=== PATIENT | male | born 1940 | race Caucasian/White ===

== ENCOUNTER 2017-06-12 09:00 | Outpatient (RCR) | payer MEDICARE, SELFPAY | END 2017-06-26 | LOC: PT 09:00 | PROVIDERS: PCP Family Medicine; Visit Provider Family Medicine | DX: R26.89 Other abnormalities of gait and mobility (principal); R29.6 Repeated falls | CPT/HCPCS: G8978; G8979; G8980; 97110; 97112; 97163 ==

== ENCOUNTER → 2017-07-02 09:21 | Outpatient (CLI) | payer MEDICARE, SELFPAY ==
--- NOTE | 2017-07-02 09:29 | XR_ITS ---
XR wrist RT min 3V HISTORY: Follow-up fracture ITS.REASON: follow up fracture ORDERING PHYSICIAN: The PATIENT AGE: 77 years COMPARISON: 06/04/2017 FINDINGS: The cast has been removed. There is good alignment of the healing distal radial fracture with intra-articular extension with no significant displacement of the fracture fragments. Fracture lines are somewhat less apparent. IMPRESSION: Interval cast removal with good alignment of healing distal radial fracture.
== END ==
PROVIDERS: PCP Family Medicine; Visit Provider Orthopaedic Surgery
DX: S52.514D Nondisplaced fracture of right radial styloid process, subsequent encounter for closed fracture with routine healing (principal)
CPT/HCPCS: 73110

== ENCOUNTER 2017-07-02 10:29 | Outpatient (RCR) | payer MEDICARE, SELFPAY | END 2017-07-02 23:59 | LOC: PT 10:29 | PROVIDERS: Family Provider Family Medicine; PCP Family Medicine; Visit Provider Orthopaedic Surgery | DX: S52.514D Nondisplaced fracture of right radial styloid process, subsequent encounter for closed fracture with routine healing (principal) | CPT/HCPCS: 97760 ==

== ENCOUNTER → 2017-08-12 13:53 | Outpatient (POV) | payer MEDICARE, SELFPAY | PROVIDERS: Family Provider Family Medicine; PCP Family Medicine | DX: Z00.00 Encounter for general adult medical examination without abnormal findings (principal) ==

== ENCOUNTER → 2017-08-13 09:49 | Outpatient (CLI) | payer MEDICARE, SELFPAY ==
--- NOTE | 2017-08-13 09:53 | XR_ITS ---
XR wrist RT min 3V HISTORY: ITS.REASON: follow up right wrist fracture. ORDERING PHYSICIAN: John Coronel MD PATIENT AGE: 77 years COMPARISON: 07/02/2017 FINDINGS: Longitudinal fracture along the lateral aspect of the distal radius is once again noted. Fracture line is less prominent consistent with healing with some developing callus formation. 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 IMPRESSION: Healing nondisplaced distal radial fracture
== END ==
PROVIDERS: PCP Family Medicine; Visit Provider Orthopaedic Surgery
DX: S52.501A Unspecified fracture of the lower end of right radius, initial encounter for closed fracture (principal)
CPT/HCPCS: 73110

== ENCOUNTER 2017-10-08 08:00 | Outpatient (RCR) | payer MEDICARE, SELFPAY | END 2017-10-08 08:01 | disposition home or self-care (01) | LOC: PT 08:00 | PROVIDERS: Family Provider Family Medicine; PCP Family Medicine; Visit Provider Psychiatry & Neurology Neurology | DX: R26.9 Unspecified abnormalities of gait and mobility (principal) | CPT/HCPCS: 97110; 97112; 97164 ==

== ENCOUNTER → 2017-12-16 13:27 | Outpatient (POV) | payer MEDICARE, SELFPAY | PROVIDERS: Family Provider Family Medicine; PCP Family Medicine | DX: Z00.00 Encounter for general adult medical examination without abnormal findings (principal) ==

== ENCOUNTER → 2017-12-25 10:39 | Outpatient (CLI) | payer MEDICARE, SELFPAY ==
[2017-12-25 10:44] LABS: Microscopic, Urine URINE MICROSCOPIC (MICROSCOPIC)
[2017-12-25 11:06] LABS: Basophils % 0.5 % (0.1-2.0); Eosinophils # 0.2 K/mm3 (0.0-0.4); Eosinophils % 2.2 % (0.1-12.0); Hematocrit 37.8 % (42.0-52.0); Hemoglobin 11.5 g/dL (14.1-18.0); Lymphocytes # 1.4 K/mm3 (0.7-4.5); Lymphocytes % 17.1 K/mm3 (10-50); Mean Corpuscular HGB Conc 30.5 g/dL (31.8-35.4); Mean Corpuscular Hemoglobin 27.7 pg (27.0-31.2); Mean Platelet Volume 7.1 fl (7.4-10.4); Monocytes # 0.4 K/mm3 (0.1-1.0); Neutrophils # 6.2 K/mm3 (1.8-7.8); Neutrophils % 75.1 % (37.0-80.0); Platelet Count 381 K/mm3 (142-424); Red Blood Count 4.15 M/mm3 (4.60-6.20); Red Cell Distribution Width 12.8 % (11.5-17.5); White Blood Count 8.3 K/mm3 (4.8-10.8)
[2017-12-25 11:28] LABS: Appearance,Urine CLEAR (Clear); Bilirubin,Urine Negative (Negative); Blood, Urine Negative (Negative); Color,Urine YELLOW (Yellow); Glucose,Urine (UA) Negative (Negative); Ketones,Urine Negative (Negative); Leukocyte Esterase,Urine Negative (Negative); Nitrate,Urine Negative (Negative); PH,Urine 6.5 (5.0-8.5); Protein,Urine 2+ (Negative); Specific Gravity, Urine 1.025 (1.005-1.030)
[2017-12-25 11:40] LABS: WBC,Urine Occasional #/hpf (0-3)
[2017-12-25 11:41] LABS: Bacteria,Urine 1+ /lpf; Squamous Epithelial Cell,Urine Occasional #/hpf (0-5)
[2017-12-25 11:53] LABS: Creatinine,Urine Random 193 mg/dL (20-320); Total Protein,Urine Random 162.1 mg/dL (0.0-11.9)
[2017-12-25 12:23] LABS: Albumin Level 3.7 gm/dL (3.4-5.0); Blood Urea Nitrogen 28 mg/dL (7-18); Calcium 9.3 mg/dL (8.5-10.1); Chloride 106 mmol/L (98-107); Creatinine,Serum 2.43 mg/dL (0.70-1.30); Estimated Glomerular Filt Rate 26 ml/min (>60); GFR (African American) 32 ML/MIN (>60); Glucose 221 mg/dL (74-106); Phosphorous 3.8 mg/dL (2.4-4.9); Sodium 143 mmol/L (136-145)
[2017-12-25 12:28] LABS: Carbon Dioxide 29 mmol/L (21.0-32.0)
[2017-12-26 18:09] LABS: Vitamin D 25 Hydroxy 33.3 ng/mL (30.0-100.0)
[2017-12-26 18:10] LABS: Parathyroid Hormone Intact 47 pg/mL (15-65)
[2017-12-27 18:29] LABS: Calcium, Ionized 5.6 mg/dL (4.5-5.6)
== END ==
PROVIDERS: Visit Provider Internal Medicine Nephrology
DX: N18.4 Chronic kidney disease, stage 4 (severe) (principal)
CPT/HCPCS: 36415; 80069; 81001; 82330; 82570; 82652; 83970; 84155; 85025

== ENCOUNTER → 2017-12-28 15:01 | Outpatient (POV) | payer MEDICARE, SELFPAY | PROVIDERS: Family Provider Family Medicine; PCP Family Medicine; Visit Provider Internal Medicine Nephrology | DX: Z00.00 Encounter for general adult medical examination without abnormal findings (principal) ==

== ENCOUNTER → 2018-01-28 08:29 | Outpatient (POV) | payer MEDICARE, SELFPAY | PROVIDERS: Family Provider Family Medicine; PCP Family Medicine; Visit Provider Dermatology | DX: Z00.00 Encounter for general adult medical examination without abnormal findings (principal) ==

== ENCOUNTER 2018-02-12 01:48 | Observation (INO) ==
[2018-02-12 02:04] LABS: Basophils % 0.4 % (0.1-2.0); Eosinophils # 0.2 K/mm3 (0.0-0.4); Eosinophils % 3.8 % (0.1-12.0); Hematocrit 34.8 % (42.0-52.0); Hemoglobin 11.3 g/dL (14.1-18.0); Lymphocytes # 1.4 K/mm3 (0.7-4.5); Lymphocytes % 23.1 K/mm3 (10-50); Mean Corpuscular HGB Conc 32.4 g/dL (31.8-35.4); Mean Corpuscular Volume 89.4 fl (80-94); Mean Platelet Volume 7.5 fl (7.4-10.4); Monocytes # 0.4 K/mm3 (0.1-1.0); Monocytes % 5.9 % (1.7-9.3); Neutrophils # 4.1 K/mm3 (1.8-7.8); Neutrophils % 66.8 % (37.0-80.0); Platelet Count 240 K/mm3 (142-424); Red Blood Count 3.89 M/mm3 (4.60-6.20); Red Cell Distribution Width 13.8 % (11.5-17.5); White Blood Count 6.2 K/mm3 (4.8-10.8)
[2018-02-12 02:15] LABS: Albumin/Globulin Ratio 1.1 (1.1-1.8); Bilirubin,Total 0.5 mg/dL (0.2-1.0); Calcium 9.2 mg/dL (8.5-10.1); Globulin 3.5 gm/dl (1.3-3.2); Total Protein,Serum 7.5 gm/dL (6.4-8.2)
[2018-02-12 02:28] LABS: Amylase 64 U/L (25-125); Creatine Kinase 169 U/L (39-308); Lipase 311 u/L (73-393)
--- NOTE | 2018-02-12 03:13 | Emergency Department Note ---
ED Disposition Clinical Impression: Small bowel obstruction, Renal insufficiency Disposition: Admitted as Observation Condition on Discharge: Good Instructions: DI for Acute Abdomen - Critical Care Critical Care Time: No Attestation: On 02/12/18, the high probability of a clinically significant, sudden or life threatening deterioration of the following system(s) required my full and direct attention, intervention and personal management. The time I documented below is in addition to time spent performing reported procedures but includes the following listed in this critical care notation. Medical Decision Making - Medical Records Medical records reviewed: Yes: I reviewed the patient's medical records. - Félix Inquiry Pt receiving controlled substance: No Vital Signs: 02/12/18 01:48 Temperature 97.4 F L Temperature Source Oral Pulse Rate [Right Radial] 61 Respiratory Rate 14 Blood Pressure [Right Arm] 169/85 Blood Pressure Mean [Right Arm] 113 02 Sat by Pulse Oximetry 96 - Lab Data Lab results reviewed: Yes: I reviewed the patient's lab results. Lab Results 02/12/18 02:00: WBC 6.2, RBC 3.89 L, Hgb 11.3 L, Hct 34.8 L, MCV 89.4, MCH 29.0 , MCHC 32.4, RDW 13.8, Plt Count 240, MPV 7.5, Neut % (Auto) 66.8, Lymph % (Auto ) 23.1, Piatt % (Auto) 5.9, Eos % (Auto) 3.8, Baso % (Auto) 0.4, Neut # (Auto) 4.1, Lymph # (Auto) 1.4, Piatt # (Auto) 0.4, Eos # (Auto) 0.2, Baso # (Auto) 0.0 02/12/18 02:00: Total Creatine Kinase 169, CK-MB (CK-2) 1.8, CK-MB (CK-2) Rel Index 1.1, Troponin I < 0.02, Amylase 64, Lipase 311 02/12/18 02:00: Sodium 141, Potassium 4.0, Chloride 103, Carbon Dioxide 29, Anion Gap 13.0, BUN 29 H, Creatinine 2.44 H, Estimated Creat Clear 31, Estimated GFR 26 L, Est GFR ( Amer) 31 L, Glucose 177 H, Calcium 9.2, Total Bilirubin 0.5, AST 17, ALT 13, Alkaline Phosphatase 42 L, Total Protein 7.5, Albumin 4.0, Globulin 3.5 H, Albumin/Globulin Ratio 1.1 Result diagrams: 02/12/18 02:00 02/12/18 02:00 Orders (Tests/Meds): ED MEDICATIONS Generic Name Dose Route Start Last Admin Trade Name Freq PRN Reason Stop Dose Admin Sodium Chloride 1,000 mls @ 999 mls/hr 02/12/18 02:15 02/12/18 02:03 Sod Chlor 0.9% 1000ml Bag IV 02/12/18 03:15 999 mls/hr .[id number] LORENA Administration Discontinued Medications Generic Name Dose Route Start Last Admin Trade Name Freq PRN Reason Stop Dose Admin Aspirin 324 mg 02/12/18 01:53 02/12/18 02:02 Aspirin 81mg Chewable Tablet PO 02/12/18 01:54 324 mg ONCE ONE Administration Famotidine 20 mg 02/12/18 01:53 02/12/18 02:02 Pepcid 20mg/2ml Vial IV 02/12/18 01:54 20 mg ONCE ONE Administration Metoclopramide HCl 10 mg 02/12/18 01:53 02/12/18 02:02 Reglan 10mg/2ml Vial IVP 02/12/18 01:54 10 mg ONCE ONE Administration Ondansetron HCl 4 mg 02/12/18 01:53 02/12/18 02:02 Zofran 4mg/2ml Vial IV 02/12/18 01:54 4 mg ONCE ONE Administration ORDERS Category Date Time Status CT abdomen pelvis wo con Stat Cat Scan 02/12/18 01:53 Taken XR chest 2V Stat Exams 02/12/18 01:53 Taken Urinalysis and Microscopic Stat Lab 02/12/18 01:53 Ordered - Radiology Data #1 Image(s): Chest Image Reviewed: Yes I reviewed the patient's radiology image Preliminary Findings: Normal/NAD - CT Data CT Scan: Abdomen, Pelvis Time Received: 03:[address] Reviewed: Yes: I have viewed the radiologist's interpretation Preliminary Findings: Abnormal (early sbo) - ECG Data Tracing #1 Arrhythmias present: other (paced) - Physician Consults Physician Consulted: sound Reason -: Admission Nausea/Vomiting/Diarrhea HPI - General Chief complaint: Abdominal Pain Stated complaint: ABDOMINAL PAIN Time Seen by Provider: 02/12/18 02:00 Mode of Arrival: Family Vehicle Source of Information: Patient, Spouse, Medical Record Limitations: No Limitations Description of Symptoms (Recalled from ER Triage Doc. by RN): RIGHT SIDED ABD PAIN THAT RADIATES INTO RIGHT CHEST THAT BEGAN AT 2300 TONIGHT. PT ALSO C/O NAUSEA/VOMITING. - History of Present Illness HPI Narrative: acute onset of rt sided abd pain with nausea and vomiting with no diarrhea MD complaint: nausea, vomiting, abdominal pain Onset (ago): hour(s) Associated Abdominal Pain: Yes Location of pain: RUQ Severity: moderate Associated symptoms: nausea/vomiting - Related Data Home Medications Medication Instructions Recorded Confirmed amlodipine 10 mg tablet 10 mg PO QDAY 07/02/17 02/12/18 aspirin 81 mg chewable tablet 81 mg PO ONCE 07/02/17 02/12/18 cholecalciferol (vitamin D3) 1,000 1,000 unit PO ONCE 07/02/17 02/12/18 unit capsule fenofibrate nanocrystallized 145 145 mg PO ONCE 07/02/17 02/12/18 mg tablet metformin 1,000 mg tablet 1,000 mg PO BID 07/02/17 02/12/18 metoprolol tartrate 25 mg tablet 25 mg PO QDAY 07/02/17 02/12/18 pramipexole 0.125 mg tablet 0.125 mg PO QHS 07/02/17 02/12/18 sertraline 25 mg tablet 25 mg PO QDAY 07/02/17 02/12/18 sitagliptin 100 mg tablet 100 mg PO QDAY 07/02/17 02/12/18 Allergies Allergy/AdvReac Type Severity Reaction Status Date / Time Penicillins [PENICILLINS] Allergy Mild Verified 02/12/18 01:52 [facility] History I have reviewed the patient's past medical history: Yes Medical History: Reports:: Diabetes Mellitus Type 1 Denies:: Cancer, Diabetes Mellitus Type 2, MRSA Amputation: No Fractures: Yes (RIGHT WRIST) - Social History Smoking Status: Former smoker Alcohol Intake: never - Psychiatric History Expresses thoughts of harming self/others: None Suicide Plan Description: No Plan ROS Obtained: Yes All systems reviewed & no additional complaints - Constitutional Constitutional: Denies fever(s) - Eyes Eyes: Denies change in vision - ENT Ears, Nose, Mouth, and Throat: Denies sore throat - Cardiovascular Cardiovascular: Denies chest pain - Respiratory Respiratory: No cough - Gastrointestinal Gastrointestingal: Reports: as per HPI, abdominal pain, nausea. Denies: black, tarry stools, vomiting - Genitourinary Male Genitourinary: Denies hematuria - Musculoskeletal Musculoskeletal: Denies joint pain - Integumentary/Breasts Skin/Breast: Denies rash - Neurologic Neurologic: Denies seizure-like activity Physical Exam - General General appearance: in no apparent distress - Head Head exam: normocephalic - Eye Eye exam: Present: PERRL, EOMI. Absent: scleral icterus - ENT ENT exam: Present: mucous membranes dry - Neck Neck exam: Present: trachea midline - Respiratory Respiratory exam: Absent: respiratory distress - Cardiovascular Cardiovascular exam: Present: regular rate, systolic murmur, +S4 - Abdominal Exam Abdominal exam: Present: soft, hyperactive bowel sounds Abdominal tenderness: Present: RUQ, moderate - Extremities Exam Extremities exam: Absent: calf tenderness - Neurological Exam Neurological exam: Present: alert, oriented X3, CN II-XII intact - Psychiatric Psychiatric exam: Present: normal affect - Skin Skin exam: Absent: rash
[2018-02-12 03:14] LABS: Microscopic, Urine URINE MICROSCOPIC (MICROSCOPIC)
[2018-02-12 03:15] LABS: Appearance,Urine CLEAR (Clear); Bilirubin,Urine Negative (Negative); Blood, Urine Negative (Negative); Color,Urine YELLOW (Yellow); Glucose,Urine (UA) 1+ (Negative); Ketones,Urine Negative (Negative); Leukocyte Esterase,Urine Negative (Negative); Protein,Urine 1+ (Negative); Urobilinogen,Urine 0.2 EU/dl (0.2)
[2018-02-12 03:32] LABS: Bacteria,Urine 1+ /lpf
[2018-02-12 03:33] LABS: Hyaline Casts,Urine Occasional #/lpf (0); Waxy Casts,Urine Occasional #/lpf (0)
--- NOTE | 2018-02-12 07:39 | Pharmacy Consult Notes ---
[facility] Pharmacy VTE Monitoring - Patient Demographics Admission date: 02/11/18 Report Date: 02/12/18 Time: 07:38 Allergies/Adverse Reactions: Patient Allergies Penicillins [PENICILLINS] Allergy (Mild, Verified 02/12/18 01:52) Height: 1.75 m Weight: 92.334 kg Patient Problems: Current Active Problems Small bowel obstruction (Acute) Renal insufficiency (Acute) - VTE Risk Labs: VTE Related Lab Results Hgb 11.3 g/dL (14.1-18.0) L 02/12/18 02:00 Hct 34.8 % (42.0-52.0) L 02/12/18 02:00 Plt Count 240 K/mm3 (142-424) 02/12/18 02:00 BUN 29 mg/dL (7-18) H 02/12/18 02:00 Creatinine 2.44 mg/dL (0.70-1.30) H 02/12/18 02:00 Estimated Creat Clear 31 mL/min (0-300) 02/12/18 02:00 VTE Score: 3 VTE Risk Level: Low Risk Clinical Trial Participant: No - Prophylaxis VTE Prophylaxis Ordered?: Yes Types of VTE Prophylaxis: TEDS Knee High
--- NOTE | 2018-02-12 08:21 | History & Physical Report ---
*Admission Date: 02/11/18 *Chief complaint: abdominal pain, vomiting *History of present illness: Mr. Wynn is a 77-year-old male with a hx of HTN, DM, HLP, and Parkinsons who was fine yesterday until 1 in the morning when he began having right lower quadrant abdominal pain, nausea, and vomiting. He states the pain was so severe it almost doubled him over. He presented to the emergency room and was found to have a partial small bowel obstruction. He was admitted for further evaluation and treatment. Of note he has been eating normally and ate a good dinner last night. His only other complaint is of some balance issues. He does think he ran a fever because he was hot and sweating. He did not actually take his temperature. [facility] History Medical History: Reports:: Cancer (MELANOMA), Diabetes Mellitus Type 2, Hyperlipidemia, Hypertension, Internal Pacemaker Denies:: Diabetes Mellitus Type 1, MRSA Other Surgeries: Yes: Pacemaker Amputation: No Fractures: Yes (RIGHT WRIST) Comment: Breast lesion removed, hemorrhoidectomy - *Social History Smoking Status: Former smoker Alcohol Intake: never Occupational Status: retired Housing: house Household Members: spouse, children - Psychiatric History Expresses thoughts of harming self/others: None Suicide Plan Description: No Plan *Family Hx:: Cancer, Hypertension, Stroke Review of Systems - Constitutional Reports chills, Reports fever(s), Reports weakness - Eyes Denies blurry vision, Denies double vision - ENT Denies nasal congestion, Denies sore throat - *Cardiovascular Denies chest pain, Denies irregular heart rhythm - *Respiratory Denies cough, Denies shortness of breath - *Gastrointestinal Reports abdominal pain, Reports nausea, Reports vomiting - *Genitourinary Denies difficulty urinating, Denies painful urination - *Musculoskeletal Denies joint pain, Denies body aches - *Neurologic Reports dizziness, Reports weakness, Denies headache(s), Denies seizure-like activity Meds Home Medications Medication Instructions Recorded Confirmed Type amlodipine 10 mg tablet 10 mg PO DAILY 07/02/17 02/12/18 History fenofibrate nanocrystallized 145 145 mg PO DAILY 07/02/17 02/12/18 History mg tablet metformin 1,000 mg tablet 500 mg PO DAILY 07/02/17 02/12/18 History sertraline 25 mg tablet 25 mg PO DAILY 07/02/17 02/12/18 History sitagliptin 100 mg tablet 100 mg PO DAILY 07/02/17 02/12/18 History Brimonidine Tartrate 2 drops EYE-BOTH BID 02/12/18 02/12/18 History Carbidopa/Levodopa 2 tab PO TID 02/12/18 02/12/18 History [Carbidopa/Levodopa 25/100mg Tablet] Donepezil HCl [Aricept 5mg] 5 mg PO HS 02/12/18 02/12/18 History Pramipexole Di-HCl [Pramipexole 0.25 mg PO DAILY 02/12/18 02/12/18 History Dihydrochloride] Pramipexole Di-HCl [Pramipexole 0.5 mg PO HS 02/12/18 02/12/18 History Dihydrochloride] Tamsulosin HCl [Flomax 0.4mg 0.4 mg PO HS 02/12/18 02/12/18 History capsule] Allergies Allergy/AdvReac Type Severity Reaction Status Date / Time Penicillins [PENICILLINS] Allergy Mild Verified 02/12/18 01:52 Exam Vital signs and Labs for Last 24 Hours: Temp Pulse Resp BP Pulse Ox 98.6 F 78 18 144/70 97 02/12/18 07:55 02/12/18 07:55 02/12/18 07:55 02/12/18 07:55 02/12/18 07:55 Laboratory Results - last 24 hr 02/12/18 02:00: WBC 6.2, RBC 3.89 L, Hgb 11.3 L, Hct 34.8 L, MCV 89.4, MCH 29.0 , MCHC 32.4, RDW 13.8, Plt Count 240, MPV 7.5, Neut % (Auto) 66.8, Lymph % (Auto ) 23.1, Morrison % (Auto) 5.9, Eos % (Auto) 3.8, Baso % (Auto) 0.4, Neut # (Auto) 4.1, Lymph # (Auto) 1.4, Morrison # (Auto) 0.4, Eos # (Auto) 0.2, Baso # (Auto) 0.0 02/12/18 02:00: Total Creatine Kinase 169, CK-MB (CK-2) 1.8, CK-MB (CK-2) Rel Index 1.1, Troponin I < 0.02, Amylase 64, Lipase 311 02/12/18 02:00: Sodium 141, Potassium 4.0, Chloride 103, Carbon Dioxide 29, Anion Gap 13.0, BUN 29 H, Creatinine 2.44 H, Estimated Creat Clear 31, Estimated GFR 26 L, Est GFR ( Amer) 31 L, Glucose 177 H, Calcium 9.2, Total Bilirubin 0.5, AST 17, ALT 13, Alkaline Phosphatase 42 L, Total Protein 7.5, Albumin 4.0, Globulin 3.5 H, Albumin/Globulin Ratio 1.1 02/12/18 03:10: Urine Color Yellow, Urine Appearance Clear, Urine pH 7.0, Ur Specific [place] 1.020, Urine Protein 1+, Urine Glucose (UA) 1+, Urine Ketones Negative, Urine Blood Negative, Urine Nitrate Negative, Urine Bilirubin Negative , Urine Urobilinogen 0.2, Ur Leukocyte Esterase Negative, Urine WBC 3-5, Ur Squamous Epith Cells 3-5, Urine Bacteria 1+, Hyaline Casts Occasional, Waxy Casts Occasional 02/12/18 06:18: POC Glucose 197 H I & O for Last 24 hours: Intake & Output 02/09/18 02/10/18 02/11/18 02/12/18 11:59 11:59 11:59 11:59 Intake Total 1000 / 1000 Balance 1000 / 1000 Weight 203 lb 9 oz - Constitutional no acute distress - *Routine HEENT Exam Head: Present: normocephalic, atraumatic Eye: Present: EOMI, PERRL ENT: Present: mucous membranes dry - *Routine Neck Exam Present: supple, full ROM - *Routine Respiratory Exam Present: CTA bilaterally - *Routine Cardiovascular Exam Present: RRR - *Routine Abdominal Exam Present: soft, normoactive bowel sounds, tenderness (RLQ) - *Routine Extremities Exam Absent: edema - *Routine Skin Exam Present: intact - *Routine Neurological Exam Present: alert, oriented X3 H&P: Result - Impressions Abd CT 1. The visualized loops of small bowel with fluid-filled loops of small bowel also suggesting delayed transit. No definite obstruction. No obvious transition point. 2. Bilateral inguinal hernias containing fat with the tip of the appendix within the right inguinal hernia CXR - nothing acute Assessment and Plan (1) Nausea & vomiting Current visit: Yes Status: Acute Category: Medical Code(s): R11.2 - Nausea with vomiting, unspecified (2) Abdominal pain, RLQ Current visit: Yes Status: Acute Category: Medical Code(s): R10.31 - Right lower quadrant pain (3) Renal insufficiency Current visit: Yes Status: Acute Category: Medical Code(s): N28.9 - Disorder of kidney and ureter, unspecified (4) Hypertension Current visit: Yes Status: Chronic Category: Medical Code(s): I10 - Essential (primary) hypertension (5) Hyperlipidemia Current visit: Yes Status: Chronic Category: Medical Code(s): E78.5 - Hyperlipidemia, unspecified (6) Type 2 diabetes mellitus Current visit: Yes Status: Chronic Category: Medical Code(s): E11.9 - Type 2 diabetes mellitus without complications - Assessment and plan all Dx Assessment and Plan for all problems:: Abdominal CT does not show a definitive obstruction. The patient did have a bowel movement today. His abdomen is still sore but feels much better than it did last night. Surgery has not been consulted at this time. Will discuss further care with Dr. Aguayo.
--- NOTE | 2018-02-12 14:59 | Progress Note ---
Internal Medicine - PN: Subj *Date: 02/12/18 *Time: 14:56 Interval history: Anxious for discharge. Tolerating liquids. Has had 2 large bowel movements. No pain. Belly soft. Exam Vital signs and Labs for Last 24 Hours: Temp Pulse Resp BP Pulse Ox 98.6 F 78 18 144/70 97 02/12/18 07:55 02/12/18 07:55 02/12/18 07:55 02/12/18 07:55 02/12/18 07:55 Laboratory Results - last 24 hr 02/12/18 02:00: WBC 6.2, RBC 3.89 L, Hgb 11.3 L, Hct 34.8 L, MCV 89.4, MCH 29.0 , MCHC 32.4, RDW 13.8, Plt Count 240, MPV 7.5, Neut % (Auto) 66.8, Lymph % (Auto ) 23.1, Wells % (Auto) 5.9, Eos % (Auto) 3.8, Baso % (Auto) 0.4, Neut # (Auto) 4.1, Lymph # (Auto) 1.4, Wells # (Auto) 0.4, Eos # (Auto) 0.2, Baso # (Auto) 0.0 02/12/18 02:00: Total Creatine Kinase 169, CK-MB (CK-2) 1.8, CK-MB (CK-2) Rel Index 1.1, Troponin I < 0.02, Amylase 64, Lipase 311 02/12/18 02:00: Sodium 141, Potassium 4.0, Chloride 103, Carbon Dioxide 29, Anion Gap 13.0, BUN 29 H, Creatinine 2.44 H, Estimated Creat Clear 31, Estimated GFR 26 L, Est GFR ( Amer) 31 L, Glucose 177 H, Calcium 9.2, Total Bilirubin 0.5, AST 17, ALT 13, Alkaline Phosphatase 42 L, Total Protein 7.5, Albumin 4.0, Globulin 3.5 H, Albumin/Globulin Ratio 1.1 02/12/18 03:10: Urine Color Yellow, Urine Appearance Clear, Urine pH 7.0, Ur Specific [place] 1.020, Urine Protein 1+, Urine Glucose (UA) 1+, Urine Ketones Negative, Urine Blood Negative, Urine Nitrate Negative, Urine Bilirubin Negative , Urine Urobilinogen 0.2, Ur Leukocyte Esterase Negative, Urine WBC 3-5, Ur Squamous Epith Cells 3-5, Urine Bacteria 1+, Hyaline Casts Occasional, Waxy Casts Occasional 02/12/18 06:18: POC Glucose 197 H 02/12/18 11:41: POC Glucose 187 H I & O for Last 24 hours: Intake & Output 02/10/18 02/11/18 02/12/18 02/13/18 11:59 11:59 11:59 11:59 Intake Total 1000 / 1000 Balance 1000 / 1000 Weight 203 lb 9 oz Assessment and Plan (1) Nausea & vomiting Current visit: Yes Status: Acute Category: Medical Code(s): R11.2 - Nausea with vomiting, unspecified (2) Abdominal pain, RLQ Current visit: Yes Status: Acute Category: Medical Code(s): R10.31 - Right lower quadrant pain (3) Renal insufficiency Current visit: Yes Status: Acute Category: Medical Code(s): N28.9 - Disorder of kidney and ureter, unspecified (4) Hypertension Current visit: Yes Status: Chronic Category: Medical Code(s): I10 - Essential (primary) hypertension (5) Hyperlipidemia Current visit: Yes Status: Chronic Category: Medical Code(s): E78.5 - Hyperlipidemia, unspecified (6) Type 2 diabetes mellitus Current visit: Yes Status: Chronic Category: Medical Code(s): E11.9 - Type 2 diabetes mellitus without complications - Assessment and plan all Dx Assessment and Plan for all problems:: will discharge to home.
[2018-02-12 15:59] VITALS: BP 125/65
--- NOTE | 2018-02-15 15:30 | Discharge Summary ---
General - General Admission date:: 02/12/18 Discharge date: 02/12/18 HPI HPI: Mr. Wynn is a 77-year-old male with a hx of HTN, DM, HLP, and Parkinsons who was fine yesterday until 1 in the morning when he began having right lower quadrant abdominal pain, nausea, and vomiting. He states the pain was so severe it almost doubled him over. He presented to the emergency room and was found to have a partial small bowel obstruction. He was admitted for further evaluation and treatment. Of note he has been eating normally and ate a good dinner last night. His only other complaint is of some balance issues. He does think he ran a fever because he was hot and sweating. He did not actually take his temperature. Hospital Course Hospital Course: The patient's abdominal CT did not show a definitive obstruction. The patient had a bowel movement and his abdominal pain improved. He tolerated a diet and was stable to be discharged home. Objective Vital signs: Temp Pulse Resp BP Pulse Ox 97.6 F 61 18 125/65 97 02/12/18 15:58 02/12/18 15:58 02/12/18 15:58 02/12/18 15:58 02/12/18 15:58 Narrative: - Constitutional no acute distress - *Routine HEENT Exam Head: Present: normocephalic, atraumatic Eye: Present: EOMI, PERRL ENT: Present: mucous membranes dry - *Routine Neck Exam Present: supple, full ROM - *Routine Respiratory Exam Present: CTA bilaterally - *Routine Cardiovascular Exam Present: RRR - *Routine Abdominal Exam Present: soft, normoactive bowel sounds, tenderness (RLQ) - *Routine Extremities Exam Absent: edema - *Routine Skin Exam Present: intact - *Routine Neurological Exam Present: alert, oriented X3 DS: Diagnosis - Discharge Diagnosis (1) Nausea & vomiting Status: Acute (2) Abdominal pain, RLQ Status: Acute (3) Renal insufficiency Status: Acute (4) Hypertension Status: Chronic (5) Hyperlipidemia Status: Chronic (6) Type 2 diabetes mellitus Status: Chronic Discharge Plan - Patient Discharge Instructions ACTIVITY: Limited activity DIET: continue same diet Patient Instructions: Small Bowel Obstruction - Follow up Plan Follow up with: Cara Aguayo MD [Primary Care Provider] - 1 week Disposition: Home, Self-Halfway Medications: Home Medications Medication Instructions Recorded Confirmed Type amlodipine 10 mg tablet 10 mg PO DAILY 07/02/17 02/12/18 History fenofibrate nanocrystallized 145 145 mg PO DAILY 07/02/17 02/12/18 History mg tablet metformin 1,000 mg tablet 500 mg PO DAILY 07/02/17 02/12/18 History sertraline 25 mg tablet 25 mg PO DAILY 07/02/17 02/12/18 History sitagliptin 100 mg tablet 100 mg PO DAILY 07/02/17 02/12/18 History Brimonidine Tartrate 2 drops EYE-BOTH BID 02/12/18 02/12/18 History Carbidopa/Levodopa 2 tab PO TID 02/12/18 02/12/18 History [Carbidopa/Levodopa 25/100mg Tablet] Donepezil HCl [Aricept 5mg] 5 mg PO HS 02/12/18 02/12/18 History Pramipexole Di-HCl [Pramipexole 0.25 mg PO DAILY 02/12/18 02/12/18 History Dihydrochloride] Pramipexole Di-HCl [Pramipexole 0.5 mg PO HS 02/12/18 02/12/18 History Dihydrochloride] Tamsulosin HCl [Flomax 0.4mg 0.4 mg PO HS 02/12/18 02/12/18 History capsule] Prescriptions/Medication Reconciliation: Continue sertraline 25 mg tablet 25 mg PO DAILY sitagliptin 100 mg tablet 100 mg PO DAILY metformin 1,000 mg tablet 500 mg PO DAILY amlodipine 10 mg tablet 10 mg PO DAILY fenofibrate nanocrystallized 145 mg tablet 145 mg PO DAILY Donepezil HCl [Aricept 5mg] 5 mg PO HS Pramipexole Di-HCl [Pramipexole Dihydrochloride] 0.5 mg PO HS Pramipexole Di-HCl [Pramipexole Dihydrochloride] 0.25 mg PO DAILY Carbidopa/Levodopa [Carbidopa/Levodopa 25/100mg Tablet] 2 tab PO TID Tamsulosin HCl [Flomax 0.4mg capsule] 0.4 mg PO HS Brimonidine Tartrate 2 drops EYE-BOTH BID
== END 2018-02-12 16:13 | disposition home or self-care (01) ==
LOC: 2ND 01:48 → ER 01:48 → OBSVTOIN 04:10 → INTOOBSV 04:10 → 2ND 04:13
PROVIDERS: ADMIT Emergency Medicine; ATTEND Family Medicine
CPT/HCPCS: 71020; 71046; 74176; 80053; 81001; 82150; 82550; 82553; 82962; 83690; 84484; 85025; 93005; 96365; 96367; 99284; G0378; J2405

== ENCOUNTER → 2018-06-09 13:05 | Outpatient (POV) | payer MEDICARE, SELFPAY | DX: Z00.00 Encounter for general adult medical examination without abnormal findings (principal) ==

== ENCOUNTER → 2018-07-03 09:46 | Outpatient (CLI) | payer MEDICARE, SELFPAY ==
[2018-07-03 13:03] LABS: Anion Gap 14.1 mEq/L (5-15); Blood Urea Nitrogen 34 mg/dL (7-18); Calcium 9.2 mg/dL (8.5-10.1); Carbon Dioxide 27 mmol/L (21.0-32.0); Chloride 105 mmol/L (98-107); Creatinine,Serum 2.84 mg/dL (0.70-1.30); Estimated Glomerular Filt Rate 22 ml/min (>60); GFR (African American) 26 ML/MIN (>60); Glucose 149 mg/dL (74-106); Phosphorous 3.6 mg/dL (2.4-4.9); Potassium 5.1 mmoL/L (3.5-5.1); Sodium 141 mmol/L (136-145)
== END ==
PROVIDERS: Visit Provider Internal Medicine Nephrology
DX: N18.4 Chronic kidney disease, stage 4 (severe) (principal)
CPT/HCPCS: 36415; 80069

== ENCOUNTER → 2018-07-05 12:47 | Outpatient (POV) | payer MEDICARE, SELFPAY | PROVIDERS: Visit Provider Internal Medicine Nephrology | DX: Z00.00 Encounter for general adult medical examination without abnormal findings (principal) ==